=== PATIENT | female | born 1995 | race Caucasian/White ===

== ENCOUNTER 2019-05-15 06:01 | Inpatient (IN) ==
[2019-05-15] MEDS ORDERED: Metoclopramide 10 MG/2 ML VIAL IVP PRN (06:03)
[2019-05-15] MEDS ORDERED: Naloxone 0.4 MG/ML INJ IVP PRN (06:03)
[2019-05-15] MEDS ORDERED: Famotidine 20 MG/2 ML VIAL IVP PRN (06:03)
[2019-05-15] MEDS ORDERED: Clindamycin 900 MG/50 ML 900 MG/50 ML IV.SOLN IVPB ONE (06:07)
[2019-05-15] MEDS ORDERED: Ringers Solution, Lactated 1,000 ML IVC SCH (06:15)
[2019-05-15 06:44] LABS: Amphetamine Screen,Urine Negative ng/mL (Cutoff=1000); Barbiturate Screen,Urine Negative ng/mL (Cutoff=200); Benzodiazepines Screen,Urine Negative ng/mL (Cutoff=300); Cannabinoid Screen,Urine Negative ng/mL (Cutoff = 50); Cocaine Screen,Urine Negative ng/mL (Cutoff= 300); Opiate Screen,Urine Negative ng/mL (Cutoff=300); Phencyclidine Screen,Urine Negative ng/mL (Cutoff=25)
[2019-05-15 06:45] LABS: White Blood Count 7.5 K/mcL (4.3-11.1)
[2019-05-15 06:46] LABS: Basophils % 0.4 %; Eosinophils # 0.1 K/mcL (0.0-0.6); Eosinophils % 1.1 %; Hematocrit 34.9 % (35.3-44.9); Hemoglobin 11.8 g/dL (11.5-15.4); Immature Granulocytes % 0.1 % (0-4); Lymphocytes # 2.3 K/mcL (0.6-4.6); Lymphocytes % 31.2 %; Mean Corpuscular HGB Conc 33.8 g/dL (31.6-35.5); Mean Corpuscular Hemoglobin 32.2 pg (28.0-33.3); Mean Corpuscular Volume 95.1 fL (83.0-100.0); Mean Platelet Volume 11.2 fL (9.4-12.4); Monocytes # 0.7 K/mcL (0.0-1.3); Monocytes % 8.8 %; Neutrophils # 4.4 K/mcL (1.6-8.9); Platelet Count 184 K/mcL (140-400); Red Blood Count 3.67 M/mcL (3.82-4.97); Red Cell Distribution Width 12.7 % (11.5-14.5); Segmented Neutrophils % 58.4 %
[2019-05-15] MEDS ORDERED: Acetaminophen IV 1,000 MG/100 ML INFUS..BTL IVPB ONE (07:24)
[2019-05-15] MEDS ORDERED: *HR* Promethazine 25 MG/ML VIAL IVP PRN (07:24)
[2019-05-15] MEDS ORDERED: *HR* Phenylephrine 10 MG/ML VIAL ONE (07:36)
[2019-05-15] MEDS ORDERED: Ketorolac 30 MG/ML VIAL ONE (07:36)
[2019-05-15] MEDS ORDERED: *HR* Oxytocin 10 UNIT/ML VIAL IM ONE (07:36)
[2019-05-15] MEDS ORDERED: Dexamethasone 4 MG/ML VIAL ONE (07:36)
[2019-05-15] MEDS ORDERED: Ondansetron 4 MG/2 ML VIAL ONE (07:36)
[2019-05-15] MEDS ORDERED: EPHEDrine 50 MG/ML VIAL ONE (07:37)
[2019-05-15] MEDS ORDERED: *HR* Morphine Sulfate/PF 10 MG/10 ML AMPUL ONE (07:37)
[2019-05-15] MEDS ORDERED: *HR* FentaNYL (PF) 100 MCG/2 ML VIAL ONE (07:37)
[2019-05-15] MEDS ORDERED: Ringers Solution, Lactated 1,000 ML ONE (07:37)
[2019-05-15] MEDS ORDERED: Ondansetron 4 MG/2 ML VIAL IVP PRN ×2 (07:39→11:59)
[2019-05-15] MEDS ORDERED: Ibuprofen 400 MG TABLET PO PRN (07:39)
[2019-05-15] MEDS ORDERED: *HR* OxyCODONE/APAP 5/325 TABLET PO PRN (07:39)
[2019-05-15] MEDS ORDERED: *HR* Midazolam HCl 2 MG/2 ML VIAL ONE (07:46)
[2019-05-15] MEDS ORDERED: traMADol 50 MG TABLET PO PRN (08:04)
[2019-05-15] MEDS ORDERED: Pregabalin 50 MG CAPSULE PO SCH (09:00)
[2019-05-15] MEDS ORDERED: Oxytocin 20 units/ LR 1000 mL 20 UNIT/1,000 ML BAG IVC ONE (10:48)
[2019-05-15] MEDS ORDERED: Simethicone 80 MG TAB.CHEW PO PRN (11:59)
[2019-05-15] MEDS ORDERED: Oxytocin 20 units/ LR 1000 mL 20 UNIT/1,000 ML BAG IVC SCH (11:59)
[2019-05-15] MEDS ORDERED: Measles/Mumps/Rubella Vacc 0.5 ML VIAL SQ ONE (11:59)
[2019-05-15] MEDS ORDERED: Acetaminophen IV 1,000 MG/100 ML INFUS..BTL IVPB SCH ×2 (12:00→15:00)
[2019-05-15] MEDS: Ibuprofen 600 MG TABLET PO PRN ×2 (13:46→20:45)
[2019-05-15] MEDS: *HR* Buprenorphine HCl 8 MG TAB.SUBL SL SCH (20:46)
[2019-05-16] MEDS ORDERED: Acetaminophen IV 1,000 MG/100 ML INFUS..BTL IVPB ONE (00:01)
[2019-05-16] MEDS: Ibuprofen 600 MG TABLET PO PRN ×3 (06:17→21:47)
[2019-05-16] MEDS: Thyroid (Amour) 30 MG TABLET PO SCH (06:17)
[2019-05-16 06:40] LABS: Basophils % 0.2 %; Eosinophils % 0.4 %; Hematocrit 28.3 % (35.3-44.9); Hemoglobin 9.4 g/dL (11.5-15.4); Immature Granulocytes % 0.3 % (0-4); Lymphocytes # 2.5 K/mcL (0.6-4.6); Lymphocytes % 22.1 %; Mean Corpuscular HGB Conc 33.2 g/dL (31.6-35.5); Mean Corpuscular Hemoglobin 31.6 pg (28.0-33.3); Mean Corpuscular Volume 95.3 fL (83.0-100.0); Mean Platelet Volume 10.8 fL (9.4-12.4); Monocytes # 0.9 K/mcL (0.0-1.3); Monocytes % 7.7 %; Neutrophils # 7.7 K/mcL (1.6-8.9); Platelet Count 160 K/mcL (140-400); Red Blood Count 2.97 M/mcL (3.82-4.97); Red Cell Distribution Width 12.9 % (11.5-14.5); Segmented Neutrophils % 69.3 %; White Blood Count 11.1 K/mcL (4.3-11.1)
[2019-05-16] MEDS: Prenatal Vit/FA 1 EACH TABLET PO SCH (08:34)
[2019-05-16] MEDS: *HR* Buprenorphine HCl 8 MG TAB.SUBL SL SCH ×2 (08:34→21:48)
[2019-05-16] MEDS ORDERED: valACYclovir 500 MG TABLET PO SCH (09:00)
[2019-05-17] MEDS: Thyroid (Amour) 30 MG TABLET PO SCH (08:01)
[2019-05-17] MEDS: Prenatal Vit/FA 1 EACH TABLET PO SCH (08:01)
[2019-05-17] MEDS: Ibuprofen 600 MG TABLET PO PRN (08:01)
[2019-05-17] MEDS: *HR* Buprenorphine HCl 8 MG TAB.SUBL SL SCH (08:03)
[2019-05-17 08:09] VITALS: BP 109/55
== END 2019-05-17 19:06 | disposition home or self-care (01) | DRG 787 ==
LOC: 1NENULAB 06:01 → 1NENUOBS 11:48